=== PATIENT | female | born 1980 | race Two or more races ===

== ENCOUNTER 2023-05-13 | Outpatient (REF) | payer OTHER, SELFPAY | END 2023-05-13 00:01 | LOC: LAB | PROVIDERS: PCP Nurse Practitioner; Visit Provider Obstetrics & Gynecology | DX: N92.1 Excessive and frequent menstruation with irregular cycle (principal) | CPT/HCPCS: 88305 ==

== ENCOUNTER 2023-06-01 10:53 | Outpatient (OUT) | payer OTHER, MEDICAID, SELFPAY ==
--- OUTSIDE RECORDS SUMMARY | 2023-06-01 10:59 | XMS_ITS | CCD ---
Author Name Unknown Address [address] [place] [address] Organization [facility] Care Team Providers Care Meeting Specialist Name Role Phone JOHNATHAN HUI Admitting Unavailable JOHNATHAN HUI Consulting Unavailable JOHNATHAN HUI Attending Unavailable TOMAS BERUMEN Primary Care Unavailable KARSON LOVE Consulting Unavailable KYM REDDY Consulting Unavailable Services, [facility] Provider OMAR BENTON Referring Unavailable SERVICES, [facility] Unava ilOMAR Casanova Referring Unavailable SERVICES, [facility] Unava ilable CARLOS FRIED Attending Unavailable CARLOS FRIED Attending Unavailable Allergies Allergy Classification Reported Allergen(s) Allergy Type Date of Onset Reaction(s) Facility (2 sources) Adhesive agent; Translations: [ADHESIVE] Propensity to adverse reactions to drug 11-09-2018 [facility] Work Phone: (2 sources) iron sucrose; Translations: [IRON SUCROSE] Drug Allergy 12-28-2020 [facility] Work Phone: Problems Active Problems Problem Classification Problem Date Documented Da te Episodic/Chronic Anxiety disorders (1 source) Anxiety; Translations: [Anxiety disorder, unspecified] Onset: 03-02-2023 03-02-2023 Chronic Deficiency and other anemia (1 source) Chronic anemia; Translations: [Anemia, unspecified] Onset: 03-02-2023 03-02-2023 Episodic Nutritional deficiencies (2 sources) Iron deficiency; Translations: [Iron deficiency] Onset: 03-03-2023 03-03-2023 Episodic Other gastrointestinal disorders (1 source) Malabsorption - iron; Translations: [Intestinal malabsorption, unspecified] Onset: 11-13-2020 03-02-2023 Chronic Other gastrointestinal disorders (1 source) Intestinal malabsorption, unspecified; Translations: [Intestinal malabsorption, unspecified] Onset: 03-02-2023 Chronic Other nutritional; endocrine; and metabolic disorders (1 source) Severe obesity; Translations: [Morbid (severe) obesity due to excess calories] Onset: 05-07-2018 05-07-2018 Chronic Unclassified (1 source) Outpatient Infusion Onset: 04-01-2023 Past or Other Problems Problem Classification Problem Date Documented Da te Episodic/Chronic Administrative/social admission (1 source) Referred by self; Translations: [Encounter for other administrative examinations] Onset: 05-07-2018 05-07-2018 Episodic Fluid and electrolyte disorders (1 source) Hypokalemia; Translations: [HYPOKALEMIA] Onset: 10-27-2018 Episodic Mood disorders (1 source) Mood disorders Onset: 05-05-2018 05-05-2018 Nausea and vomiting (4 sources) Nausea with vomiting, unspecified; Translations: [NAUSEA WITH VOMITING UNSPECIFIED] Onset: 10-25-2018 Episodic Other gastrointestinal disorders (1 source) Bariatric surgery status; Translations: [BARIATRIC SURGERY STATUS] Onset: 10-27-2018 Episodic Residual codes; unclassified (1 source) Family history of diabetes mellitus; Translations: [Family history of diabetes mellitus] Onset: 05-07-2018 05-07-2018 Episodic Results Test Name Value Interpretation Reference Range Facil ity Lactic Acidon 10-25-2018 Lactate [Mass/Vol] 22.4 mg/dL High 4.5-19.8 [facility] Comment on above: Performed By: #### [id number] #### [facility] [address] [place] [address] Encounters Encounter Date Encounter Type Care Provider Facility Start: 05-13-2023 End: 05-13-2023 ambulatory CARLOS FRIED Not Available Start: 04-08-2023 End: 04-08-2023 ambulatory [facility] Start: 04-01-2023 End: 04-01-2023 ambulatory [facility] Start: 03-24-2023 Documentation procedure Christina Mcdonald [facility] Start: 03-17-2023 End: 03-17-2023 ambulatory CARLOS FRIED Not Available Start: 10-25-2018 End: 10-26-2018 Patient encounter procedure JOHNATHAN HUI Facility: Start: 05-05-2018 Patient encounter procedure Christina eubanks RN [facility] Work Phone: Plan of Treatment Date Care Activity Detail Author Start: 07-06-2031 DTaP,Tdap and Td Vaccines (2 - Td or Tdap) DTaP,Tdap and Td Vaccines (2 - Td or Tdap) [facility] Start: 03-06-2024 Adult BMI Screening Adult BMI Screen ing [facility] Start: 03-04-2024 End: 03-04-2024 Patient encounter procedure 03/04/2024 1:00 PM EST Office Visit Denice Mcdonald [facility] [address] [place] [phone] Omar Benton MD [address] [place] [address] [address] [place], [place] [id number] [facility] Start: 03-02-2024 Tobacco Screening Tobacco Screening [facility] Start: 11-21-2022 Influenza vaccination Influenza Vacc ine [facility] Start: 11-05-2003 Screening for malign ant neoplasm of cervix Pap Smear [facility] Start: 2000 Adult BMI Follow Up Plan Adult BMI Follow Up Plan [facility] Start: 1994 Depression Screening Depression Scre ening [facility] Payers Date Payer Category Payer Private Health Insurance [facility] PLUS [id number] 2019-Present [phone] [address] [address] [place] [address] [id number] 2019 Private Health Insurance [id number] 1982 Unknown [id number] [id number] 1982 Unknown [id number] [id number] 1982 Unknown [id number]. 2.1286 1982 Unknown [id number]. 2.1259 1982 Unknown [id number] 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) [facility] Start: 04-05-2020 End: 03-02-2023 History of Social function [facility] Start: 04-05-2020 End: 03-02-2023 [facility] Utilities [facility] Has the [employer], [employer], or water [employer] threatened to shut off services in your home in past 12Mo Yes [facility] How hard is it for y ou to pay for the very basics like food, housing, medical care, and heating Very hard [facility] Adolescent depressio n screening assessment 2 [facility] Start: 1980 Sex Assigned At Not on file P [facility] Goals Date Patient Goal Desired Activity /State Personal health goal Comment on above: Formatting of this n ote might be different from the original. Evaluation of progress towards goal: In progress: Return home History of Present illness Narrative 03-24-2023 Christina Vuong RN - 03/24/2023 12:13 PM EST Note Date & Type Note Facility 03-24-2023 History of Presen t illness Narrative Images from the original note were not included. Zeinab Vuong RN REQUEST IS UNDER NURSE REVIEW WITH HER PLAN RIGHT NOW I ASKED FOR TURN AROUND TIME AND WAS TOLD THEY DO NOT PROVIDE THEM THANKS NRV Previous Messages ----- Message ----- From: Christina Vuong RN Sent: 03/24/2023 10:37 AM EST To: [facility] Subject: [place]-iron Patient called to check status of her iron infusion. She in concerned with how long it has been since referral. [phone] Please advise. Thanks. documented in this encounter [employer] Instructions Note Date & Type Note Facility Instructions Not on filedocumented in this en counter [facility] Summary Purpose Family History No Family History Records FoundNo Family History Records FoundNo Family History Records FoundNo Family History Records Found Advance Directives No Advanced Directives Records FoundLatest Code Status on File Code Status Date Activated Date Inactivated Comments Full Code 03/02/2023 7:20 PM 03/03/2023 3:37 PM Additional Source Comments INFORMATION SOURCE (unrecogn ized section and content) DATE CREATED AUTHOR 10/26/2018 [facility] DATE CREATED AUTHOR AUTHOR'S ORGANIZ ATION 04/14/2020 [facility] DATE CREATED AUTHOR AUTHOR'S ORGANIZ ATION 04/11/2023 [facility] DATE CREATED AUTHOR AUTHOR'S ORGANIZ ATION 05/21/2023 [facility] dicwi Specialists EPIC Care Teams (unrecognized sec tion and content) Meeting Specialist Relationship Specialty Start Date End Date [facility], [facility] [address] [place], [place] PCP - General Family Medicine 11/06/22 FOR RECORDS PERTAINING TO PATIENTS WHO ARE OR HAVE BEEN ENROLLED IN A CHEMICAL DEPENDENCY/SUBSTANCEABUSE PROGRAM, SOME INFORMATION MAY BE OMITTED. This clinical summary was aggregated from multiple sources. Caution should be exercised in using it in the provision of clinical care. This summary normalizes information from multiple sources, and as a consequence, information in this document may materially change the coding, format and clinical context of patient data. In addition, data may be omitted in some cases. CLINICAL DECISIONS SHOULD BE BASED ON THE PRIMARY CLINICAL RECORDS. [facility]. provides no warranty or guarantee of the accuracy or completeness of information in this document.
[2023-06-01 11:53] LABS: Basophils Percent Auto 0.7 % (0.2-2.0); Eosinophils Absolute Auto 0.1 10^3/uL (0.0-0.7); Eosinophils Percent Auto 1.4 % (0.9-7.0); Hematocrit 42.1 % (36.0-48.0); Hemoglobin 13.4 g/dL (12.0-16.0); INR 0.93; Immature Granulocytes Abs Auto 0.01 10^3/uL (0.00-0.03); Immature Granulocytes Pct Auto 0.2 % (0.0-0.5); Lymphocytes Absolute Auto 1.6 10^3/uL (1.2-3.8); Lymphocytes Percent Auto 35.2 % (20.5-60.0); Mean Corpuscular HGB Conc 31.8 g/dL (29.9-35.2); Mean Corpuscular Hemoglobin 27.7 pg (26.7-34.0); Monocytes Absolute Auto 0.2 10^3/uL (0.3-0.8); Monocytes Percent Auto 5.2 % (1.7-12.0); Neutrophils Absolute Auto 2.5 10^3/uL (1.4-6.5); Neutrophils Percent Auto 57.3 % (43.0-75.0); Partial Thromboplastin Time 30.1 sec (22.3-36.2); Platelet Count 184 10^3/uL (150-450); Prothrombin Time 9.9 sec (9.0-11.6); Red Blood Count 4.84 10^6/uL (4.20-5.40); Red Cell Distribution Width 23.7 % (11.0-15.0); White Blood Count 4.4 10^3/uL (4.0-11.0)
[2023-06-01 12:07] LABS: Alanine Aminotransferase 47 U/L (14-59); Albumin Globulin Ratio 0.9; Albumin Level 3.3 g/dL (3.4-5.0); Alkaline Phosphatase 75 U/L (46-116); Anion Gap 12.1; Aspartate Amino Transferase 24 U/L (15-37); Bilirubin Direct 0.1 mg/dL (0.0-0.2); Bilirubin Total 0.4 mg/dL (0.2-1.0); Calcium 8.4 mg/dL (8.5-10.1); Carbon Dioxide 25.2 mmol/L (21.0-32.0); Chloride 107 mmol/L (98-107); Estimated GFR (African America >60 (>=60); Estimated GFR (Non-African Ame >60 (>=60); Globulin 3.6 g/dL; Glucose 85 mg/dL (74-106); Potassium 4.3 mmol/L (3.5-5.1); Sodium 140 mmol/L (136-145); Total Protein 6.9 g/dL (6.4-8.2)
== END 2023-06-01 10:54 | disposition home or self-care (01) ==
LOC: PST 10:55
PROVIDERS: PCP Family Medicine; Visit Provider Obstetrics & Gynecology
DX: Z01.812 Encounter for preprocedural laboratory examination (principal); N92.1 Excessive and frequent menstruation with irregular cycle; D64.9 Anemia, unspecified; Z12.4 Encounter for screening for malignant neoplasm of cervix; Z98.890 Other specified postprocedural states
CPT/HCPCS: 80048; 80076; 85025; 85610; 85730; 86850; 86900; 86901; 87624; G0145

== ENCOUNTER 2023-06-01 21:28 | Outpatient (REF) | payer OTHER, MEDICAID, SELFPAY ==
--- OUTSIDE RECORDS SUMMARY | 2023-06-01 21:32 | XMS_ITS | CCD ---
Author Name Unknown Address [address] [place] [address] Organization [facility] Care Team Providers Care Scrap Yard Worker Name Role Phone JOHNATHAN HUI Admitting Unavailable JOHNATHAN HUI Consulting Unavailable JOHNATHAN HUI Attending Unavailable TOMAS BERUMEN Primary Care Unavailable KARSON LOVE Consulting Unavailable KYM REDDY Consulting Unavailable Services, [facility] Provider OMAR BENTON Referring Unavailable SERVICES, [facility] Unava ilOMAR Casanova Referring Unavailable SERVICES, [facility] Unava ilable CARLOS FRIED Attending Unavailable CARLOS FRIED Attending Unavailable Allergies Allergy Classification Reported Allergen(s) Allergy Type Date of Onset Reaction(s) Facility (2 sources) Adhesive agent; Translations: [ADHESIVE] Propensity to adverse reactions to drug 11-09-2018 [facility] Work Phone: (2 sources) iron sucrose; Translations: [IRON SUCROSE] Drug Allergy 12-28-2020 [facility] Work Phone: Problems Active Problems Problem [...] 10-25-2018 Lactate [Mass/Vol] 22.4 mg/dL High 4.5-19.8 [facility] Comment on above: Performed By: #### [id number] #### [facility] [address] [place] [address] Encounters Encounter Date Encounter Type Care Provider Facility Start: 05-13-2023 End: 05-13-2023 ambulatory CARLOS FRIED Not Available Start: 04-08-2023 End: 04-08-2023 ambulatory [facility] Start: 04-01-2023 End: 04-01-2023 ambulatory [facility] Start: 03-24-2023 Documentation procedure Christina Mcdonald [facility] - [facility] On[facility] Start: 03-17-2023 End: 03-17-2023 ambulatory CARLOS FRIED Not Available Start: 10-25-2018 End: 10-26-2018 Patient encounter procedure JOHNATHAN HUI Facility: Start: 05-05-2018 Patient encounter procedure Christina eubanks RN [facility] Work Phone: Plan of Treatment Date Care Activity Detail Author Start: 07-06-2031 DTaP,Tdap and Td Vaccines (2 - Td or Tdap) DTaP,Tdap and Td Vaccines (2 - Td or Tdap) [facility] Start: 03-06-2024 Adult BMI Screening Adult BMI Screen ing [facility] Start: 03-04-2024 End: 03-04-2024 Patient encounter procedure 03/04/2024 1:00 PM EST Office Visit Denice Mcdonald [facility] - Medical Oncology [address] [place] [phone] Omar Benton MD [address] [place] [address] [address] [place], [place] [id number] Denice Mcdonald [facility] Start: 03-02-2024 Tobacco Screening Tobacco Screening [facility] Start: 11-21-2022 Influenza vaccination Influenza Vacc ine [facility] Start: 11-05-2003 Screening for malign ant neoplasm of cervix Pap Smear [facility] Start: 2000 Adult BMI Follow Up Plan Adult BMI Follow Up Plan [facility] Start: 1994 Depression Screening Depression Scre ening [facility] Payers Date Payer Category Payer Private Health Insurance [facility] PL[facility] [id number] 2019-Present [phone] [address] [address] [place] [address] [id number] 2019 Private Health Insurance [id number] 1982 Unknown [id number] [id number] 1982 Unknown [id number] [id number] 1982 Unknown [id number]. 2.1286 1982 Unknown [id number] [id number]. 2.1259 1982 Unknown [id number] 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) [facility] Start: 04-05-2020 End: 03-02-2023 History of Social function [facility] Start: 04-05-2020 End: 03-02-2023 [facility] Utilities [facility] Has the [employer], [employer], or water [employer] threatened to shut off services in your home in past 12Mo Yes [facility] [employer] [facility] How hard is it for y ou to pay for the very basics like food, housing, medical care, and heating Very hard [facility] Adolescent depressio n screening assessment 2 [facility] Start: 1980 Sex Assigned At Not on file P [facility] Goals Date Patient Goal Desired Activity [...] how long it has been since referral. [phone] Please advise. Thanks. documented in this encounter [employer] Instructions Note Date & Type Note [...] section and content) DATE CREATED AUTHOR 10/26/2018 [facility] DATE CREATED AUTHOR AUTHOR'S ORGANIZ ATION 04/14/2020 [facility] DATE CREATED AUTHOR AUTHOR'S ORGANIZ ATION 04/11/2023 [facility] DATE CREATED AUTHOR AUTHOR'S ORGANIZ ATION 05/21/2023 [facility] dicpr Specialists EPIC Care Teams (unrecognized sec tion and content) Scrap Yard Worker Relationship Specialty Start Date End Date [facility], [facility] [address] [place], [place] PCP - General Family Medicine 11/06/22 [...] BE BASED ON THE PRIMARY CLINICAL RECORDS. [employer] [facility]. provides no warranty or guarantee of the accuracy or completeness of information in this document.
[2023-06-04 13:11] LABS: Age Gdln ACOG Testing Note (.); HPV Aptima Negative (Negative); IGP, Aptima HPV, rfx 16/18,45 Note (.)
== END 2023-06-01 21:29 | disposition home or self-care (01) ==
LOC: LAB 21:28
PROVIDERS: PCP Family Medicine; Visit Provider Obstetrics & Gynecology
DX: Z12.4 Encounter for screening for malignant neoplasm of cervix (principal)
CPT/HCPCS: 87624; G0145

== ENCOUNTER 2023-06-08 16:19 | Outpatient (OUT) | payer OTHER, MEDICAID, SELFPAY | END 2023-06-08 16:20 | disposition home or self-care (01) | LOC: LAB 16:19 | PROVIDERS: PCP Family Medicine; Visit Provider Obstetrics & Gynecology | DX: Z01.812 Encounter for preprocedural laboratory examination (principal); N92.1 Excessive and frequent menstruation with irregular cycle; D64.9 Anemia, unspecified; Z98.890 Other specified postprocedural states | CPT/HCPCS: 36415; 86850; 86870; 86880; 86900; 86901; 86905; 86906; 86922 ==

== ENCOUNTER 2023-08-10 11:23 | Outpatient (OUT) | payer OTHER, MEDICAID, SELFPAY ==
--- OUTSIDE RECORDS SUMMARY | 2023-08-10 11:44 | XMS_ITS | CCD ---
Author Organization [facility] Care Team Providers Care Kindergarten Prep Teacher Name Role Phone JOHNATHAN HUI Admitting JOHNATHAN Ferraro Consulting Unavailable JOHNATHAN HUI Attending Unavailable TOMAS BERUMEN Primary Care Unavailable KARSON LOVE Consulting Unavailable KYM REDDY Consulting Unavailable Services, [facility] Provider OMAR BENTON Referring Unavailable SERVICES, [facility] Unava ilable OMAR BENTON Referring Unavailable SERVICES, [facility] Unava ilable CARLOS FRIED Attending Unavailable CARLOS FRIED Attending Unavailable CARLOS FRIED Attending Unavailable CARLOS FRIED Attending Unavailable Allergies Allergy Classification Reported Allergen(s) Allergy Type Date of Onset Reaction(s) Facility (2 sources) Adhesive agent; Translations: [ADHESIVE] Propensity to adverse reactions to drug 11-09-2018 [facility] Work Phone: (2 sources) iron sucrose; Translations: [IRON SUCROSE] Drug Allergy 12-28-2020 [facility] Work Phone: Problems Active Problems [...] 10-25-2018 Lactate [Mass/Vol] 22.4 mg/dL High 4.5-19.8 [facility] Comment on above: Performed By: #### [id number] #### [facility] [address] [place] [address] Encounters Encounter Date Encounter Type Care Provider Facility Start: 08-03-2023 End: 08-03-2023 ambulatory CARLOS FARIHA Not Available Start: 06-01-2023 End: 06-01-2023 ambulatory CARLOS FARIHA Not Available Start: 05-13-2023 End: 05-13-2023 ambulatory CARLOS FARIHA Not Available Start: 04-08-2023 End: 04-08-2023 ambulatory OMAR BENTON [facility] Start: 04-01-2023 End: 04-01-2023 ambulatory OMAR BENTON [facility] Start: 03-24-2023 Documentation procedure Christina Mcdonald [facility] - Medical Oncology Start: 03-17-2023 End: 03-17-2023 ambulatory CARLOS FRIED Not Available Start: 10-25-2018 End: 10-26-2018 Patient encounter procedure JOHNATHAN HUI Facility: Start: 05-05-2018 Patient encounter procedure Christina eubanks RN [facility] Work Phone: Plan of Treatment Date Care Activity Detail Author Start: 07-06-2031 DTaP,Tdap and Td Vaccines (2 - Td or Tdap) DTaP,Tdap and Td Vaccines (2 - Td or Tdap) [facility] Start: 03-06-2024 Adult BMI Screening Adult BMI Screen ing [facility] Start: 03-04-2024 End: 03-04-2024 Patient encounter procedure 03/04/2024 1:00 PM EST Office Visit Denice Mcdonald [facility] - Medical Oncology [address] [place] [phone] [place] [address] [place] [address] [place] [address] [facility] - [facility] Oncology Start: 03-02-2024 Tobacco Screening Tobacco Screening [facility] Start: 11-21-2022 Influenza vaccination Influenza Vacc ine [facility] Start: 11-05-2003 Screening for malign ant neoplasm of cervix Pap Smear [facility] Start: 2000 Adult BMI Follow Up Plan Adult BMI Follow Up Plan [facility] Start: 1994 [facility] Payers Date Payer Category Payer Medicaid [id number] 2019 Private Health Insurance [facility] PLUS [id number] 2019-Present [phone] [address] [address] [place] [address] [id number] 2019 Private Health Insurance [id number] 1982 Unknown [id number] 593 1982 Unknown [id number] 1286 1982 Unknown [id number]. 1286 1982 Unknown [id number] [id number]. 1259 1982 Unknown [id number] [id number]. 1259 1982 Unknown [id number] [id number]. 1259 1982 Unknown [id number]. 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 (finding) [facility] Start: 04-05-2020 End: 03-02-2023 History of Social function [facility] Start: 04-05-2020 End: 03-02-2023 [facility] [employer] [facility] Has the [employer], [employer], or water [employer] threatened to shut off services in your home in past 12Mo Yes [facility] How hard is it for y ou to pay for the very basics like food, housing, medical care, and heating Very hard [facility] Adolescent depressio n screening assessment 2 [facility] Start: 1980 Sex Assigned At Not on file P [facility] Goals Date Patient Goal Desired Activity [...] 10:37 AM EST To: [facility] Subject: [place]-iron Patient called to check status of her iron infusion. She in concerned with how long it has been since referral. [phone] Please advise. Thanks. documented in this encounter [facility] Instructions Note Date & Type Note [...] section and content) DATE CREATED AUTHOR 10/26/2018 [facility] DATE CREATED AUTHOR AUTHOR'S ORGANIZ ATION 04/14/2020 [facility] DATE CREATED AUTHOR AUTHOR'S ORGANIZ ATION 04/11/2023 [facility] DATE CREATED AUTHOR AUTHOR'S ORGANIZ ATION 08/04/2023 [facility] dical Specialists EPIC Care Teams (unrecognized sec tion and content) Kindergarten Prep Teacher Relationship Specialty Start Date End Date [facility] [address] [place], [place] PCP - General Family Medicine 11/06/22 [...] BE BASED ON THE PRIMARY CLINICAL RECORDS. [facility] [employer] [facility]. provides no warranty or guarantee of the accuracy or completeness of information in this document.
[2023-08-10 11:56] LABS: Basophils Percent Auto 0.2 % (0.2-2.0); Eosinophils Absolute Auto 0.1 10^3/uL (0.0-0.7); Eosinophils Percent Auto 1.4 % (0.9-7.0); Hematocrit 38.4 % (36.0-48.0); Hemoglobin 12.5 g/dL (12.0-16.0); Immature Granulocytes Abs Auto 0.01 10^3/uL (0.00-0.03); Immature Granulocytes Pct Auto 0.2 % (0.0-0.5); Lymphocytes Absolute Auto 1.3 10^3/uL (1.2-3.8); Lymphocytes Percent Auto 29.9 % (20.5-60.0); Mean Corpuscular HGB Conc 32.6 g/dL (29.9-35.2); Mean Corpuscular Hemoglobin 29.7 pg (26.7-34.0); Mean Corpuscular Volume 91.2 fL (81.0-99.0); Mean Platelet Volume 12.1 fL (9.5-13.5); Monocytes Absolute Auto 0.3 10^3/uL (0.3-0.8); Monocytes Percent Auto 6.7 % (1.7-12.0); Neutrophils Absolute Auto 2.7 10^3/uL (1.4-6.5); Neutrophils Percent Auto 61.6 % (43.0-75.0); Platelet Count 188 10^3/uL (150-450); Red Blood Count 4.21 10^6/uL (4.20-5.40); Red Cell Distribution Width 13.2 % (11.0-15.0); White Blood Count 4.4 10^3/uL (4.0-11.0)
[2023-08-10 12:25] LABS: Free T4 0.93 ng/dL (0.76-1.46)
[2023-08-10 12:29] LABS: Thyroid Stimulating Hormone 1.096 uIU/mL (0.358-3.740)
== END 2023-08-10 11:24 | disposition home or self-care (01) ==
LOC: LAB 11:32
PROVIDERS: PCP Family Medicine; Visit Provider Obstetrics & Gynecology
DX: R10.9 Unspecified abdominal pain (principal); R11.0 Nausea; N93.9 Abnormal uterine and vaginal bleeding, unspecified; R42 Dizziness and giddiness
CPT/HCPCS: 36415; 84439; 84443; 85025

== ENCOUNTER 2023-08-10 14:28 | Outpatient (OUT) | payer OTHER, MEDICAID, SELFPAY ==
[2023-08-10 15:12] LABS: Alanine Aminotransferase 26 U/L (14-59); Albumin Globulin Ratio 0.9; Albumin Level 3.3 g/dL (3.4-5.0); Alkaline Phosphatase 76 U/L (46-116); Anion Gap 15.2; Aspartate Amino Transferase 19 U/L (15-37); BUN Creatinine Ratio 23.1; Bilirubin Direct 0.1 mg/dL (0.0-0.2); Bilirubin Total 0.7 mg/dL (0.2-1.0); Calcium 8.9 mg/dL (8.5-10.1); Carbon Dioxide 25.6 mmol/L (21.0-32.0); Chloride 106 mmol/L (98-107); Estimated GFR (African America >60 (>=60); Estimated GFR (Non-African Ame >60 (>=60); Globulin 3.6 g/dL; Glucose 87 mg/dL (74-106); Potassium 4.8 mmol/L (3.5-5.1); Sodium 142 mmol/L (136-145); Total Protein 6.9 g/dL (6.4-8.2)
== END 2023-08-10 14:29 | disposition home or self-care (01) ==
LOC: PST 14:29
PROVIDERS: PCP Family Medicine; Visit Provider Obstetrics & Gynecology
DX: Z01.812 Encounter for preprocedural laboratory examination (principal); R10.9 Unspecified abdominal pain; R11.0 Nausea; N93.9 Abnormal uterine and vaginal bleeding, unspecified; R42 Dizziness and giddiness; N92.1 Excessive and frequent menstruation with irregular cycle; D64.9 Anemia, unspecified; Z79.890 Hormone replacement therapy
CPT/HCPCS: 36415; 80048; 80076; 84439; 84443; 85025; 86850; 86900; 86901

== ENCOUNTER 2023-08-12 06:20 | Day surgery (SDC) | payer OTHER, MEDICAID, SELFPAY ==
[2023-08-10 15:11] VITALS: BP 108/70; PULSE 69; TEMP 36.4; O2SAT 96; BMI 33.2
[2023-08-12] VITALS (22 sets, daily range): BP systolic 93–112; BP diastolic 53–72; PULSE 66–87; TEMP 36.4–37.2; O2SAT 94–100; BMI 33.0
--- OUTSIDE RECORDS SUMMARY | 2023-08-12 06:22 | XMS_ITS | CCD ---
Author Organization [facility] Care Team Providers Care Track Layer Name Role Phone JOHNATHAN HUI Admitting JOHNATHAN Ferraro Consulting Unavailable JOHNATHAN HUI Attending Unavailable TOMAS BERUMEN Primary Care Unavailable KARSON LOVE Consulting Unavailable KYM REDDY Consulting Unavailable Services, [facility] Care Provider OMAR BENTON Referring Unavailable SERVICES, [facility] Unava ilable OMAR BENTON Referring Unavailable SERVICES, [facility] Unava ilable CARLOS FRIED Attending Unavailable CARLOS FRIED Attending Unavailable CARLOS FRIED Attending Unavailable CARLOS FRIED Attending Unavailable Allergies Allergy Classification Reported Allergen(s) Allergy Type Date of Onset Reaction(s) Facility (2 sources) Adhesive agent; Translations: [ADHESIVE] Propensity to adverse reactions to drug 11-09-2018 [facility] Work Phone: (2 sources) iron sucrose; Translations: [IRON SUCROSE] Drug Allergy 12-28-2020 [facility] Work Phone: Problems Active Problems [...] 10-25-2018 Lactate [Mass/Vol] 22.4 mg/dL High 4.5-19.8 [facility] Comment on above: Performed By: #### [id number] #### [facility] [address] [place] [address] Encounters Encounter Date Encounter Type Care Provider Facility Start: 08-03-2023 End: 08-03-2023 ambulatory CARLOS FARIHA Not Available Start: 06-01-2023 End: 06-01-2023 ambulatory CARLOS FARIHA Not Available Start: 05-13-2023 End: 05-13-2023 ambulatory CARLOS FARIHA Not Available Start: 04-08-2023 End: 04-08-2023 ambulatory OMAR [facility] Start: 04-01-2023 End: 04-01-2023 ambulatory OMAR BENTON [facility] Start: 03-24-2023 Documentation procedure Christina [facility]cdonald [facility] Start: 03-17-2023 End: 03-17-2023 ambulatory CARLOS FRIED Not Available Start: 10-25-2018 End: 10-26-2018 Patient encounter procedure JOHNATHAN HUI Facility: Start: 05-05-2018 Patient encounter procedure Christina eubanks RN [facility] Work Phone: Plan of Treatment Date Care Activity Detail Author Start: 07-06-2031 DTaP,Tdap and Td Vaccines (2 - Td or Tdap) DTaP,Tdap and Td Vaccines (2 - Td or Tdap) [facility] Start: 03-06-2024 Adult BMI Screening Adult BMI Screen ing [facility] Start: 03-04-2024 End: 03-04-2024 Patient encounter procedure 03/04/2024 1:00 PM EST Office Visit Denice Mcdonald [facility] [address] [place] [phone] Omar Benton MD [address] [place] [address] [address] [place] [address] Denice Mcdonald [facility] Start: 03-02-2024 Tobacco Screening Tobacco Screening [facility] Start: 11-21-2022 Influenza vaccination Influenza Vacc ine [facility] Start: 11-05-2003 Screening for malign ant neoplasm of cervix Pap Smear [facility] Start: 2000 Adult BMI Follow Up Plan Adult BMI Follow Up Plan [facility] Start: 1994 Depression Screening Depression Scre [facility] Payers Date Payer Category Payer Medicaid [id number] 2019 Private Health Insurance [facility] PLUS [id number] 2019-Present [phone] [address] [address] [place] [address] [id number] 2019 Private Health Insurance [id number] 1982 Unknown [id number] 1982 Unknown [id number] 1982 Unknown [id number] 1982 Unknown [id number] [id number] 1982 Unknown [id number] 1259 1982 Unknown [id number] 1259 1982 Unknown [id number] 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 threatened to shut off services in your home in past 12Mo Yes [facility] How hard is it for y ou to pay for the very basics like food, housing, medical care, and heating Very hard [facility] Adolescent depressio n screening assessment 2 [facility] Start: 1980 Sex Assigned At Not on file P [facility] Goals Date Patient Goal Desired Activity /State [...] 10:37 AM EST To: [facility] Subject: Pitt-iron Patient called to check status of her iron infusion. She in concerned with how long it has been since referral. [phone] Please advise. Thanks. documented in this encounter [facility] Instructions Note Date & Type Note [...] section and content) DATE CREATED AUTHOR 10/26/2018 [facility] DATE CREATED AUTHOR AUTHOR'S ORGANIZ ATION 04/14/2020 [facility] DATE CREATED AUTHOR AUTHOR'S ORGANIZ ATION 04/11/2023 [facility] DATE CREATED AUTHOR AUTHOR'S ORGANIZ ATION 08/04/[address] [facility] d[facility] Specialists EP[employer] Care Teams (unrecognized sec tion and content) Track Layer Relationship Specialty Start Date End Date [facility] [address] [place], [place] PCP - General Family Medicine 11/06/22 [...] BE BASED ON THE PRIMARY CLINICAL RECORDS. [facility] [employer] [facility]. provides no warranty or guarantee of the accuracy or completeness of information in this document.
[2023-08-12 06:52] LABS: HCG Quantitative <1 mIU/mL
[2023-08-12] MEDS: LACTATED RINGER'S SOLUTION 1,000 ML 50 ML IV ×2 (07:13→10:00)
[2023-08-12] MEDS: SCOPOLAMINE 1 MG/3 DAYS TRANSDERM PATCH 1 PATCH TD (07:13)
[2023-08-12] MEDS: CEFAZOLIN SODIUM/DEXTROSE,ISO 2 GM/50 ML PIGGYBACK IV ×3 (07:42→20:40)
--- NOTE | 2023-08-12 13:27 | PM.ONB ---
Brief Operative Note Date of procedure: 08/12/23 Pre-op diagnosis general: menorrhagia, dyspareunia, dysmenorrhea, pelvic pain Post-op diagnosis: same as pre-op Procedure: NAME OF PROCEDURE: ? Robotic assisted laparoscopic hysterectomy with cystoscopy, bilateral salpingectomy PROCEDURE:? The patient was taken back to the operating room, where she was prepped and draped in the normal sterile fashion after being placed in the dorsal lithotomy position.? Patient?s anesthesia was found to be adequate.? Surgical timeout was performed using two patient identifiers.? SCDs were on and in place.? Two grams of Ancef were given prior to the surgery.? Sterile Serrano catheter was inserted.? Standard size VCare was secured to the uterine cervix and the surgeon changed gloves.? Attention then was turned to the patient's abdomen, where a supraumbilical incision was then made.? Two S retractors were used to identify the patient?s fascia.? The fascia was then tented up using Trisha clamps and the patient?s fascia was incised sharply.? Patient?s abdomen was identified and entered bluntly.? The patient had the trocar placed and a pneumoperitoneum was obtained.? Approximately 4 liters of CO2 gas was used.? The camera was then placed through the trocar.? At this time, two robot trocars were placed in the patient?s left and right side, two hand widths from the midline, and this was placed under direct visualization.? Please note significant abdominal adhesions of the uterus up to the fundus to anterior abdominal wall. The patient?s tube on the right side was tented up and the vessel sealer was then used to come across the mesosalpinx, and this was carried down to the uterine ovarian ligament.? The vessel sealer was carried down serially to the broad ligament, to the area of the bladder flap, which was then created anteriorly, and the uterine arteries were skeletonized and sealed using the vessel sealer.?This was done on the contralateral side as well The colpotomy was made using the monopolar cautery on cut, and this was carried circumferentially, posteriorly to anteriorly, until the uterus was amputated.? The specimen was then removed intact through the vagina, without difficulty.? The vagina was then closed using two running V-Loc in a non-lock fashion.? The robot was undocked.? The abdomen was desufflated.? The skin defects were closed using 4-0 Vicryl.? Please note, the fascia was closed using 0 Vicryl.? Sponge, lap and needle counts were correct x2.? Patient was taken to recovery room in stable condition.? The patient was awakened by Anesthesia first.? Patient tolerated procedure well.?? Anesthesia: MACKENZIEA Surgeon: Jaron Ram General Milling Superintendent: Tasha Keith Estimated blood loss (mL): 200 Pathology: other (uterus tubes and cervix) Condition: stable Disposition: PACU Urinary Catheter Management Urinary Catheter Management Urethral: Cath placed during this visit: no
[2023-08-12] MEDS: KETOROLAC TROMETHAMINE 30 MG/ML VIAL IVP ×2 (13:47→20:40)
[2023-08-12] MEDS: LACTATED RINGER'S SOLUTION 1,000 ML 125 ML IV ×2 (13:48→23:01)
[2023-08-12] MEDS: MEPERIDINE HCL/PF 25 MG/ML VIAL IVP (13:52)
--- NOTE | 2023-08-12 14:09 | PC.NURSE ---
Shivering, shaking; medicated with Demerol IV as ordered by anesthesia; peripad dry
--- NOTE | 2023-08-12 14:12 | PC.NURSE ---
No further shaking or shivering noted; peripad dry
[2023-08-12] MEDS: ONDANSETRON PF 4 MG/2 ML VIAL IV (17:29)
[2023-08-12] MEDS: OXYCODONE HCL/ACETAMINOPHEN 5MG/325MG 2 TAB PO (17:29)
[2023-08-12] MEDS: SIMETHICONE 80 MG TAB.CHEW PO ×2 (18:05→23:01)
[2023-08-13] MEDS: KETOROLAC TROMETHAMINE 30 MG/ML VIAL IVP (02:43)
[2023-08-13 03:03] VITALS: BP 82/53; PULSE 69; TEMP 36.7
[2023-08-13 03:04] VITALS: BP 91/54; PULSE 68
[2023-08-13] MEDS: OXYCODONE HCL/ACETAMINOPHEN 5MG/325MG 2 TAB PO ×2 (05:13→11:47)
[2023-08-13 05:59] LABS: Basophils Percent Auto 0.4 % (0.2-2.0); Eosinophils Percent Auto 0.7 % (0.9-7.0); Hematocrit 30.9 % (36.0-48.0); Hemoglobin 9.9 g/dL (12.0-16.0); Immature Granulocytes Abs Auto 0.02 10^3/uL (0.00-0.03); Immature Granulocytes Pct Auto 0.4 % (0.0-0.5); Lymphocytes Absolute Auto 1.3 10^3/uL (1.2-3.8); Lymphocytes Percent Auto 22.1 % (20.5-60.0); Mean Corpuscular Hemoglobin 29.6 pg (26.7-34.0); Mean Corpuscular Volume 92.2 fL (81.0-99.0); Monocytes Absolute Auto 0.5 10^3/uL (0.3-0.8); Monocytes Percent Auto 9.5 % (1.7-12.0); Neutrophils Absolute Auto 3.8 10^3/uL (1.4-6.5); Neutrophils Percent Auto 66.9 % (43.0-75.0); Platelet Count 152 10^3/uL (150-450); Red Blood Count 3.35 10^6/uL (4.20-5.40); Red Cell Distribution Width 13.2 % (11.0-15.0); White Blood Count 5.7 10^3/uL (4.0-11.0)
[2023-08-13] MEDS: ENOXAPARIN SODIUM 40 MG/0.4 ML SYRINGE SUBQ (07:21)
--- NOTE | 2023-08-13 07:46 | P.GYNPN_ITS ---
DIETARY SUPERVISOR - PN: Subj Post-Op Subjective: patient reports feeling better, patient has no complaints, patient desires discharge, pain is well controlled and patient is tolerating oral intake Exam Constitutional Vital Signs, click to edit/add: Last Vital Signs Temp 98.1 F 08/13/23 03:03 Pulse 68 08/13/23 03:04 Resp 16 08/13/23 03:05 BP 91/54 08/13/23 03:04 Pulse Ox 95 08/12/23 14:20 O2 Del Method Room Air 08/12/23 14:20 Documenting provider has reviewed patient's vital signs: yes Common normals: no apparent distress Respiratory Common normals: clear to auscultation bilaterally Cardio Common normals: regular rate and regular rhythm GI Common normals: Normal to inspection, nondistended, normoactive bowel sounds present Extremity Common normals: no clubbing, cyanosis or edema and no calf tenderness Results Labs Labs: Short CBC 08/13/23 Range/Units 05:39 WBC 5.7 (4.0-11.0) 10^3/uL Hgb 9.9 L (12.0-16.0) g/dL Hct 30.9 L (36.0-48.0) % Plt Count 152 (150-450) 10^3/uL DIETARY SUPERVISOR - A/P Assessment and Plan (1) Acute blood loss anemia: Assessment and Plan: repeat cbc at noon if stable discharge home, rx on chart, precautions given Postoperative Procedures: Procedures Operation Date: 08/12/23 07:30 Actual Procedure Side Surgeon p Robot assist laparoscopic hysterectomy, R/O ESSURE COILS, cysto,BILATERAL SALPINGECTOMY Not Applicable Jaron Ram DO Postoperative day: 1 Postoperative status DIETARY SUPERVISOR: doing well Post-operative plan DIETARY SUPERVISOR: routine post-op care, advance diet and discharge Fall Risk Details Lazo fall scale risk level: Moderate Fall Risk Current medications: Current Medications Al Hydroxide/Mg Hydroxide (Magnesium Hydroxide 2,400 Mg/10 Ml Oral.Susp) 2,400 mg PO ONCE ONE Stop: 08/13/23 09:01 Docusate Sodium (Docusate Sodium 100 Mg Capsule) 100 mg PO BID PRN PRN Reason: Constipation Enoxaparin Sodium (Enoxaparin Sodium 40 Mg/0.4 Ml Syringe) 40 mg SUBQ Q24H CHRISTINE Last Admin: 08/13/23 07:21 Dose: 40 mg Lactated Ringer's (Lactated Ringers) 1,000 mls @ 125 mls/hr IV .Q8H CHRISTINE Last Admin: 08/12/23 23:01 Dose: 125 mls/hr Promethazine HCl 25 mg/ Sodium (Chloride) 51 mls @ 204 mls/hr IV Q6H PRN PRN Reason: Nausea And Vomiting Ibuprofen (Ibuprofen 400 Mg Tablet) 800 mg PO Q6H PRN PRN Reason: Pain Ketorolac Tromethamine (Ketorolac Tromethamine 30 Mg/Ml Vial) 30 mg IVP Q6H PRN PRN Reason: Pain Last Admin: 08/13/23 02:43 Dose: 30 mg Ondansetron HCl (Ondansetron Pf 4 Mg/2 Ml Vial) 4 mg IV Q6H PRN PRN Reason: Nausea Last Admin: 08/12/23 17:29 Dose: 4 mg Oxycodone/Acetaminophen (Oxycodone Hcl/Acetaminophen 5mg/325mg) 1 tab PO Q6H PRN PRN Reason: Pain Oxycodone/Acetaminophen (Oxycodone Hcl/Acetaminophen 5mg/325mg) 2 tab PO Q6H PRN PRN Reason: Pain Last Admin: 08/13/23 05:13 Dose: 2 tab Simethicone (Simethicone 80 Mg Tab.Chew) 80 mg PO PCHS PRN PRN Reason: Abdominal Distention Last Admin: 08/12/23 23:01 Dose: 80 mg Temazepam (Temazepam 15 Mg Capsule) 30 mg PO QHS PRN PRN Reason: Sleep Time Spent With Patient Time: Total time spent is greater than 50% in coordination of care (as documented) at patient's floor/unit and/or counseling patient: Time with patient: less than 15 minutes Urinary Catheter Management Urinary Catheter Management Urethral: Cath placed during this visit: no
[2023-08-13 07:48] VITALS: BP 92/50; PULSE 72
[2023-08-13 08:08] VITALS: BP 92/50; PULSE 72; TEMP 36.8
[2023-08-13] MEDS: MAGNESIUM HYDROXIDE 2,400 MG/10 ML ORAL.SUSP 2400 MG PO (08:37)
[2023-08-13 12:42] LABS: Basophils Percent Auto 0.2 % (0.2-2.0); Eosinophils Percent Auto 0.6 % (0.9-7.0); Hemoglobin 10.2 g/dL (12.0-16.0); Immature Granulocytes Abs Auto 0.01 10^3/uL (0.00-0.03); Immature Granulocytes Pct Auto 0.2 % (0.0-0.5); Lymphocytes Absolute Auto 1.2 10^3/uL (1.2-3.8); Lymphocytes Percent Auto 25.6 % (20.5-60.0); Mean Corpuscular HGB Conc 31.9 g/dL (29.9-35.2); Mean Corpuscular Hemoglobin 29.7 pg (26.7-34.0); Mean Corpuscular Volume 93.3 fL (81.0-99.0); Monocytes Absolute Auto 0.4 10^3/uL (0.3-0.8); Neutrophils Absolute Auto 3.1 10^3/uL (1.4-6.5); Neutrophils Percent Auto 65.4 % (43.0-75.0); Platelet Count 156 10^3/uL (150-450); Red Blood Count 3.43 10^6/uL (4.20-5.40); Red Cell Distribution Width 13.5 % (11.0-15.0); White Blood Count 4.7 10^3/uL (4.0-11.0)
== END 2023-08-13 15:10 | disposition home or self-care (01) ==
LOC: SURGOUT 06:20 → FBC 14:28
PROVIDERS: PCP Family Medicine; Visit Provider Obstetrics & Gynecology
PROC: (CPT 840; principal; 2023-08-12 07:30)
DX: N92.1 Excessive and frequent menstruation with irregular cycle (principal); N94.10 Unspecified dyspareunia; N94.6 Dysmenorrhea, unspecified; R10.2 Pelvic and perineal pain; N73.6 Female pelvic peritoneal adhesions (postinfective); D62 Acute posthemorrhagic anemia; N72 Inflammatory disease of cervix uteri; N88.8 Other specified noninflammatory disorders of cervix uteri; D25.9 Leiomyoma of uterus, unspecified; Z98.84 Bariatric surgery status; N93.9 Abnormal uterine and vaginal bleeding, unspecified; R11.0 Nausea; R42 Dizziness and giddiness
CPT/HCPCS: 58571; 36415; 84702; 85025; 88307; 94667; J1094; J2704